=== PATIENT | female | born 1990 | race Caucasian/White ===

== ENCOUNTER 2018-09-03 11:33 | Observation (INO) | payer OTHER ==
[2018-09-03] MEDS ORDERED: LR 1,000 ML IV ONE (12:06)
[2018-09-03] MEDS ORDERED: LIDOCAINE 1% 300 MG/30 ML SDV ONE (13:15)
[2018-09-03] MEDS ORDERED: BUPIVACAINE/EPI 0.5% 30 ML SDV ONE (13:15)
[2018-09-03] MEDS ORDERED: NA BICARBONATE 50 MEQ/50 ML VIAL ONE (13:16)
[2018-09-03] MEDS ORDERED: ceFAZolin 2 GM/DEXTROSE 100 ML IV ONE (13:22)
--- NOTE | 2018-09-03 13:36 | GHP ---
DATE OF ADMISSION: 09/03/2018 CHIEF COMPLAINT: Hematoma, right breast. HISTORY OF PRESENTING COMPLAINT: The patient is a 28-year-old woman, who underwent breast augmentati on 3 weeks ago. This morning she woke up with acute pain in the right breast and increased swelling in the upper pole. She was seen in the ER in [place], and after discussion with the ER jeramy hernandez, I concluded that she likely has a hematoma. Examination in my office confirmed this impression. PAST MEDICAL HISTORY: Unremarkable. She is a healthy 28-year-old female. MEDICATIONS: Prozac. ALLERGIES: None known. SOCIAL HISTORY: She is a smoker. PHYSICAL EXAMINATION: GENERAL: She is an anxious 28-year-old female in obvious discomfort from her painful swollen right breast. CARDIOVASCULAR EXAM: Heart sounds are normal. RESPIRATORY EXAM: [facility] st is clear. EXAMINATION OF THE BREASTS: Reveals acute swelling in the upper pole of the right dia st and significant tenderness. IMPRESSION: Fit for procedure. PLAN: Evacuation and drainage of hematoma, right breast. /[id number]/MODL
[2018-09-03] MEDS ORDERED: MIDAZOLAM 2 MG/2 ML VIAL IVP ONE (13:38)
[2018-09-03] MEDS ORDERED: MIDAZOLAM 2 MG/2 ML VIAL ONE (13:39)
--- NOTE | 2018-09-03 13:40 | PDANEPAE ---
ANE History of Present Illness breast hematoma s/p augmentation ANE Past Medical History - Cardiovascular History Hx Hypertension: No Hx Arrhythmias: No Hx Chest Pain: No Hx Coronary Artery / Peripheral Vascular Disease: No Hx CHF / Valvular Disease: No Hx Palpitations: No - Pulmonary History Hx COPD: No Hx Asthma/Reactive Airway Disease: No Hx Recent Upper Respiratory Infection: No Hx Oxygen in Use at Home: No Hx Sleep Apnea: No ANE Review of Systems Review of systems is: negative Review of Systems: - Exercise capacity Exercise capacity: >=4 METS ANE Patient History - Allergies Allergies/Adverse Reactions: No Known Allergies Allergy (Unverified 09/03/18 13:14) - Home Medications Home medications: home medication list seen and reviewed Home Medications: FLUoxetine 09/03/18 [Last Taken Unknown] Ibuprofen 09/03/18 [Last Taken Unknown] - NPO status NPO Since - Liquids (Date): 09/03/18 NPO Since - Liquids (Time): 05:00 NPO Since - Solids (Date): 09/02/18 NPO Since - Solids (Time): 23:00 - Anes Hx Anes Hx: no prior problems ANE Labs/Vital Signs - Vital Signs Blood Pressure: 115/59 Heart Rate: 56 Respiratory Rate: 16 O2 Sat (%): 98 Height: 157.48 cm Weight: 44.476 kg ANE Physical Exam - Airway Neck exam: FROM Mallampati Score: Class 2 Mouth exam: normal dental/mouth exam - Pulmonary Pulmonary: no respiratory distress - Cardiovascular Cardiovascular: regular rate and rhythym - ASA Status ASA Status: II ANE Anesthesia Plan Anesthesia Plan: GA w LMA
[2018-09-03] MEDS ORDERED: PROPOFOL 200 MG/20 ML VIAL ONE (13:46)
[2018-09-03] MEDS ORDERED: fentaNYL 100 MCG/2 ML INJ ONE (13:46)
[2018-09-03] MEDS ORDERED: LIDOCAINE 2% 2 ML INJ ONE (13:47)
[2018-09-03] MEDS ORDERED: POLYMYXIN B SULFATE 500,000 UNIT/10 ML SYR IRR ONE (13:53)
[2018-09-03] MEDS ORDERED: BACITRACIN 50,000 UNITS/10 ML SYR IRR ONE (13:53)
[2018-09-03] MEDS ORDERED: ePHEDrine SULFATE 25 MG/5 ML SYR ONE (14:06)
[2018-09-03] MEDS ORDERED: DEXAMETHASONE 4 MG/ML VIAL ONE (14:06)
[2018-09-03] MEDS ORDERED: NALOXONE HCL 0.4 MG/ML INJ IVP PRN (14:14)
[2018-09-03] MEDS ORDERED: ALBUTEROL 3 ML DEYVIAL IH PRN (14:14)
[2018-09-03] MEDS ORDERED: oxyCODONE IR 5 MG TAB PO PRN (14:14)
[2018-09-03] MEDS ORDERED: LR 500 ML IV PRN (14:14)
[2018-09-03] MEDS ORDERED: ACETAMINOPHEN 500 MG TAB PO PRN (14:14)
[2018-09-03] MEDS ORDERED: fentaNYL 100 MCG/2 ML INJ IVP PRN (14:14)
[2018-09-03] MEDS ORDERED: HYDROmorphONE/DILAUDID 2 MG/ML INJ IVP PRN (14:14)
[2018-09-03] MEDS ORDERED: PROMETHAZINE HCL 25 MG/ML INJ IVP PRN (14:14)
[2018-09-03] MEDS ORDERED: ONDANSETRON 4 MG/2 ML VIAL IVP PRN (14:14)
[2018-09-03] MEDS ORDERED: HYDROCODONE/APAP 5/325 TAB PO PRN (14:14)
--- NOTE | 2018-09-03 14:14 | POSTANESTH ---
Post Anesthetic Evaluation Cardiovascular Status: Normal, Stable Respiratory Status: Normal, Stable Level of Consciousness/Mental Status: Can Participate in Eval, Mildly Sleepy, Arousable Pain Control: Adequate, Prn Tx Ordered Nausea/Vomiting Control: Adequate, Prn Tx Ordered Complications Possibly Related to Anesthesia: None Noted
[2018-09-03] MEDS ORDERED: ONDANSETRON 4 MG/2 ML VIAL ONE (14:30)
--- NOTE | 2018-09-03 15:07 | GOP ---
DATE OF OPERATION: 09/03/2018 SURGEON: Blaine Bautista MD PREOPERATIVE DIAGNOSIS: Hematoma, right breast. POSTOPERATIVE DIAGNOSIS: Hematoma, right breast. PROCEDURE PERFORMED: Evacuation of hematoma, right breast. FINDINGS: ESTIMATED BLOOD LOSS: 5 mL of blood and 120 mL of hematoma. DESCRIPTION OF PROCEDURE: With the patient lying supine under general anesthesia, anterior chest region was prepped, draped in usual fashion. Preexisting inframammary scar was reopened and dissection was taken down through underlying tissue to implant capsule. Capsule was opened up with electrocautery. Hematoma was immediately apparent and was suctioned out. A total of approximately 120 cc of fluid and clot was removed. A bleeder on the surface of the chest wall near the inframammary fold was rapidly identified and controlled with electrocautery. No other significant bleeders were found. Plan had initially been to place a drain, but the well-formed capsule and the lack of any evident bleeding, made this unnecessary. Closure was carried out in layers with 3-0 Vicryl deep sutures, followed by 3-0 Vicryl inverted dermal sutures, and 3-0 Prolene running subcuticular sutures. Dressing of Steri- Strips and gauze was applied. Procedure was tolerated well. /[id number]/MODL MTDD
[2018-09-03] MEDS ORDERED: HYDROmorphONE/DILAUDID 2 MG/ML INJ ONE (15:34)
[2018-09-03] MEDS: HYDROCODONE/APAP 5/325 TAB PO PRN (18:37)
[2018-09-04] MEDS: HYDROCODONE/APAP 5/325 TAB PO PRN ×3 (06:20→16:10)
--- NOTE | 2018-09-04 12:06 | ASMTCMCOM ---
CM Note CM Note Notes: Chart reviewed. Patient seen by spiritual counseling and reveals she has suffered emotional trauma back in [place]. She is having difficulty with school and has attempted to get counseling at the school but was put off by the delay in appointment. I contacted the student Health center at [facility] and they recommend she call. I have also received other referral sources she can try, I have will provide her with numbers where she can follow up. I left a message with Jigna Velasco in hopes she may be able to see the patient. CM to follow. No current needs identified. Plan: Likely independent when medically cleared for discharge. Date Signed: 09/04/2018 12:05 PM Electronically Signed By:Erica Pan RN
[2018-09-04 12:07] VITALS: BP 109/55
--- NOTE | 2018-09-04 15:44 | ASDISCHSUM ---
Discharge Information Plan Status:Home with No Needs Medically Cleared to Leave:09/03/2018 Discharge Date:09/03/2018 CM D/C Disposition:Home, Routine, Self-Care ADT D/C Disposition:Home, Routine, Self-Care Projected Discharge Date:09/03/2018 Transportation at D/C:Family Discharge Delay Reason: Follow-Up Date:09/03/2018 Discharge Slot: Final Diagnosis: Placement Information Patient Contact Information Contact Name:YONI Relationship:Other Address: Work Phone: City: [facility] Phone: State/Zip Code: Email: Financial Information Financial Class:HMO and PPO Plans Primary Plan Desc:[employer] Primary Plan Number:[id number] Secondary Plan Desc: Secondary Plan Number: Assessment Information [facility] CM Progress Note CM Note CM Note Notes: Chart reviewed. Patient seen by spiritual counseling and reveals she has suffered emotional trauma back in [place]. She is having difficulty with school and has attempted to get counseling at the school but was put off by the delay in appointment. I contacted the student Health center at [facility] and they recommend she call. I have also received other referral sources she can try, I have will provide her with numbers where she can follow up. I left a message with Jigna Velasco in hopes she may be able to see the patient. CM to follow. No current needs identified. Plan: Likely independent when medically cleared for discharge. Date Signed: 09/04/2018 12:05 PM Electronically Signed By:Erica Pan RN Intervention Information
--- NOTE | 2018-09-04 15:45 | ASMTLACE ---
[facility] Length of stay for Answers: 1 day current admission # of Emergency department Answers: 0 visits in the last 6 months Score: 1 Date Signed: 09/04/2018 03:44 PM Electronically Signed By:Erica Pan RN
--- NOTE | 2018-09-04 15:48 | ASMTCMCOM ---
CM Note CM Note Notes: Medically cleared for discharge to home. Excuses for airline and school provided by RN. I provided patient with outpatient resources numbers for outpatient mental health counseling handwritten and in her discharge paperwork. No other needs identified at this time. CM available should needs arise. Plan: Dc to home independently. Date Signed: 09/04/2018 03:48 PM Electronically Signed By:Erica Pan RN
== END 2018-09-04 17:16 | disposition home or self-care (01) ==
LOC: FSGY 11:33 → F3N 14:48 → F1N 16:07
PROVIDERS: ADMIT Plastic Surgery; ATTEND Plastic Surgery
PROC: 0H9T0ZZ Drainage of Right Breast, Open Approach (ICD-10-PCS; principal; 2018-09-03 13:45)
DX: N64.89 Other specified disorders of breast (principal)
CPT/HCPCS: 19020; G0378; J0690; J1100; J1170; J2250; J2270; J2405; J2704; J3010